=== PATIENT | female | born 1990 | race Caucasian/White ===

== ENCOUNTER 2020-08-22 18:56 | Emergency (ER) | payer SELFPAY ==
[2020-08-22 18:59] VITALS: BP 158/90; PULSE 96; RESP 16; TEMP 36.3; O2SAT 100; BMI 29.7
--- NOTE | 2020-08-22 19:10 | CT_ITS ---
STUDY: CT ABDOMEN AND PELVIS WITH CONTRAST REASON FOR EXAM: Female, 30 years old. abd pain RADIATION DOSAGE (If Supplied By Facility): CTDIvol = ( 11.145 ) mGy, DLP = ( 809.95 ) mGycm TECHNIQUE: Transaxial images were obtained from the dome of the diaphragm to the symphysis pubis without oral contrast. IV 100mL Isovue-370 was administered. Sagittal and coronal images were reconstructed. Individualized dose optimization techniques were used for this CT. COMPARISON: None. FINDINGS: The visualized lung bases are unremarkable. Normal liver. . No intrahepatic biliary duct dilatation or liver mass. Normal gallbladder and extrahepatic biliary system. Normal spleen. Normal pancreas. Normal bilateral adrenal glands. Normal right kidney. Normal left kidney. . No hydronephrosis or renal masses. No large stones. Normal visualized stomach. Normal small intestine. There are multiple colonic diverticula consistent with diverticulosis. No bowel dilatation or obstruction. No free air or free fluid. The appendix is visualized and appears normal. Normal abdominal aorta. Normal inferior vena cava. Normal retroperitoneum. Normal urinary bladder. Normal visualized uterus. Normal abdominal wall. Normal osseous structures. 1. CT/Abdomen/Pelvis W IV Cont ONLY IMPRESSION: 2. Colonic diverticulosis Electronically Signed: Refugio Donnelly MD at 20:49 EDT , Service support ,
[2020-08-22] MEDS: Ondansetron 4 MG/2 ML Vial IV (19:29)
[2020-08-22] MEDS: 0.9% Normal Saline 1,000 ML 1000 ML IV (19:29)
[2020-08-22 19:36] LABS: Bacteria 0 SEEN /hpf (None Seen); Mucous, Urine 0 SEEN /hpf (<or=2+); Red Blood Cells-Urine 0 SEEN /hpf (0-5); Squamous Epithelial Cells - UA 0 SEEN /hpf (5-10); White Blood Cells 0 SEEN /hpf (0-5)
[2020-08-22 19:38] LABS: Color, Urine Straw (Yellow); Glucose, Dipstick Normal (Normal); Ketone-Dipstick Negative (Negative); Leukocyte Esterase-Dipstick Negative /ul (Negative); Nitrite-Dipstick Negative (Negative); Occult Blood-Urine Negative /ul (Negative); Protein-Dipstick Negative (Negative); Specific Gravity, Urine 1.005 (1.002-1.030); Urine Bilirubin Dipstick Negative (Negative); Urine Clarity Clear (Clear); Urine Urobilinogen Normal (Normal)
[2020-08-22 19:39] LABS: Absolute Lymphocyte Count 3.81 X10^3/uL (0.83-4.51); Absolute Neutrophil Count 5.5 X10^3/uL (2.0-7.7); Basophil# 0.08 X10^3/uL; Basophil% 0.7 % (0-1); Eosinophil# 0.71 X10^3/uL; Eosinophils% 6.6 % (0-5); Hematocrit 39.5 % (37-47); Hemoglobin 12.7 g/dL (12.0-15.0); Lymphocyte # 3.81 X10^3/ul (0.83-4.51); Lymphocyte % 35.3 % (19-41); Mean Corp Hgb Conc 32.2 g/dL (32-36); Mean Corpuscular Hgb 27.6 pg (27.0-32.0); Mean Corpuscular Volume 85.9 fL (81-99); Mean Platelet Vol. 9.4 fl (6.2-12.0); Monocyte# 0.65 X10^3/uL; NRBC Flagged by Analyzer 0 % (0-5); Neutrophil # 5.51 X10^3/uL (2.7-7.7); Neutrophil % 51.1 % (47-70); Platelet Count 378 K/mm3 (150-450); RBC Distribution Width CV 12.4 % (11.6-14.6); RBC Distribution Width SD 38.7 fl (35.1-43.9); White Blood Count 10.8 K/mm3 (4.4-11.0)
[2020-08-22 19:42] LABS: Internal QC Validated? YES +Cl - CLEAR BKGD; Pregnancy, Urine Negative Negative
[2020-08-22 19:58] LABS: AST(SGOT) 17 U/L (15-37); Alanine Aminotransfer ALT/SGPT 13 U/L (13-56); Albumin, Serum 3.9 g/dL (3.2-5.0); Alkaline Phosphatase 59 U/L (45-117); Anion Gap 3 (5-15); BUN 12 mg/dL (7-18); BUN/Creat Ratio 10.8 RATIO (10-20); Calcium,Total 8.9 mg/dL (8.5-10.1); Chloride 105 mmol/L (98-107); Creatinine, Serum 1.11 mg/dL (0.55-1.02); EST Glomerular Filtration Rate 61 mL/min (>60); Est Glom Filt Rate - Afr Amer 74 mL/min (>60); Estimated Creatinine Clearance 69.38 ml/min; Globulin 3.9 g/dL (2.2-4.2); Glucose 95 mg/dL (74-106); Lipase 124 U/L (73-393); Potassium 3.5 mmol/L (3.5-5.1); Protein, Total 7.8 g/dL (6.4-8.2); Sodium Level 137 mmol/L (136-145)
--- NOTE | 2020-08-22 20:56 | EDS_ITS ---
HPI History of Present Illness Chief Complaint: Abd Pain Informant: patient Onset/Context/Timing Onset: Days Context: Gradual Onset Timing: Intermittent Current Severity: Moderate Maximum Severity: Moderate Narrative Narrative: The patient is a 30-year-old female is otherwise healthy who presents to the emergency department abdominal pain. Patient states for the past week, she has had a lot of cramping pain across her lower abdomen especially to eating. She states she is had diminished appetite and nausea. She denies any fevers or chills. She states she is otherwise been in her normal state of health. She has no history of prior abdominal surgery. She denies chance of . Prior similar symptoms: No Recent Illness/Hospitalization: No PFSH PFSH Medical History Anxiety Home Medications bupropion HCl [Wellbutrin] 200 mg PO BID 08/22/20 [History Last Taken Unknown] ciprofloxacin HCl 500 mg PO BID #14 tablet 08/22/20 [Rx Last Taken Unknown] escitalopram oxalate [Lexapro] 10 mg PO DAILY 08/22/20 [History Last Taken Unknown] metronidazole 500 mg PO Q8H #21 tab 08/22/20 [Rx Last Taken Unknown] ondansetron 4 mg PO Q8H PRN PRN #10 tab 08/22/20 [Rx Last Taken Unknown] Allergy/AdvReac Type Severity Reaction Status Date / Time No Known Allergies Allergy Verified 08/22/20 18:57 no surgical history Social History Smoking Status: Never smoker ROS ROS ED Constitutional Constitutional ED: Denies chills or fever(s) Eyes Eyes: Denies blurry vision or change in vision ENT ENT ED: Denies ear pain or sore throat Cardiovascular Cardiovascular: Denies chest pain or palpitations Respiratory/Chest Respiratory/Chest: Denies cough, dyspnea or dyspnea on exertion Gastrointestinal Gastrointestinal: Reports abdominal pain and nausea; Denies vomiting Genitourinary Genitourinary ED: Denies dysuria or urinary frequency Musculoskeletal Musculoskeletal: Denies arthralgias or myalgias Integumentary Denies rash Neurologic Neurologic: Denies headache(s) or paresthesias Psychiatric Psychiatric: Denies anxiety or depression Endocrine Endocrinology: Denies polydipsia or polyuria Allergic/Immunologic Allergic/Immunologic ED: Denies urticaria EXAM Physical Exam Const Vital Signs: 08/22/20 18:59 Temperature 97.3 F L Temperature Source Temporal Pulse Rate 96 Respiratory Rate 16 Blood Pressure 158/90 H Blood Pressure Mean 112 Pulse Ox 100 Oxygen Delivery Method Room Air Positive well nourished and well developed General Appearance ED: well developed HEENT Reports normocephalic, head/scalp atraumatic and moist mucous membranes Eyes PERRL and EOMs intact bilaterally Neck no lymphadenopathy and supple General: Negative for tenderness Chest Wall inspection of chest normal Resp normal respiratory effort and clear to auscultation bilaterally Cardio regular rate, regular rhythm and no murmurs GI normal to inspection, nondistended, normoactive bowel sounds GI Narrative: Mildly tender in the suprapubic area under the left lower quadrant Palpation: tender; Negative for guarding or rebound tenderness present Back/Spine no CVA tenderness Cervical Spine: Negative for cervical spine tenderness Thoracic Spine / Upper Back: Negative for thoracic spinal tenderness Extremity normal to inspection General Extremety ED: Negative for tenderness Neuro oriented x3 and CN's II-XII intact bilaterally Neuro Narrative: No focal deficits appreciated. Sensorium / Orientation: alert Psych mental status grossly normal Skin no rashes or lesions noted, no wounds and skin turgor normal MDM MDM MDM Narrative Medical decision making narrative: Patient presents with abdominal pain mostly in the lower quadrant. IV was established. She was given fluids and Zofran with improvement of her symptoms. Screening labs were obtained. These were unremarkable. Urine shows evidence of infection. The patient is non. Patient underwent CT imaging. She does have rather significant diverticulosis. Although there is no definitive evidence of diverticulitis, given her pain and symptoms, I do for the most prudent plan of care would be to treat her with Cipro and Flagyl. Patient examined her first dose here. She has no evidence of perforation or abscess. She not had a fever. I do feel that she is safe for outpatient therapy. She is comfortable with this plan of care. Impression 1. Diverticulitis Lab Data Attestation: I reviewed the patient's lab results. Labs: Laboratory Results - last 24 hr 08/22/20 08/22/20 08/22/20 16:25 19:30 19:30 WBC 10.8 RBC 4.60 Hgb 12.7 Hct 39.5 MCV 85.9 MCH 27.6 MCHC 32.2 RDW Std Deviation 38.7 RDW Coeff of [place] 12.4 Plt Count 378 MPV 9.4 Immature Gran % (Auto) 0.300 Neut % (Auto) 51.1 Lymph % (Auto) 35.3 Evangeline % (Auto) 6.0 Eos % (Auto) 6.6 H Baso % (Auto) 0.7 Absolute Neuts (auto) 5.5 Absolute Lymphs (auto) 3.81 Nucleated RBC % 0 Sodium Potassium Chloride Carbon Dioxide Anion Gap BUN Creatinine Estim Creat Clear Calc Est GFR (MDRD) Af Amer Est GFR (MDRD) Non-Af BUN/Creatinine Ratio Glucose Calcium Total Bilirubin AST ALT Alkaline Phosphatase Total Protein Albumin Globulin Albumin/Globulin Ratio Lipase Urine Color Straw Urine Clarity Clear Urine pH 7.0 Ur Specific [place] 1.005 Urine Protein Negative Urine Glucose (UA) Normal Urine Ketones Negative Urine Occult Blood Negative Urine Nitrite Negative Urine Bilirubin Negative Urine Urobilinogen Normal Ur Leukocyte Esterase Negative Urine RBC 0 SEEN Urine WBC 0 SEEN Ur Squamous Epith Cells 0 SEEN Urine Bacteria 0 SEEN Urine Mucus 0 SEEN Urine Test Negative 08/22/20 19:30 WBC RBC Hgb Hct MCV MCH MCHC RDW Std Deviation RDW Coeff of [place] Plt Count MPV Immature Gran % (Auto) Neut % (Auto) Lymph % (Auto) Evangeline % (Auto) Eos % (Auto) Baso % (Auto) Absolute Neuts (auto) Absolute Lymphs (auto) Nucleated RBC % Sodium 137 Potassium 3.5 Chloride 105 Carbon Dioxide 29.0 Anion Gap 3 L BUN 12 Creatinine 1.11 H Estim Creat Clear Calc 69.38 Est GFR (MDRD) Af Amer 74 Est GFR (MDRD) Non-Af 61 BUN/Creatinine Ratio 10.8 Glucose 95 Calcium 8.9 Total Bilirubin 0.30 AST 17 ALT 13 Alkaline Phosphatase 59 Total Protein 7.8 Albumin 3.9 Globulin 3.9 Albumin/Globulin Ratio 1.0 Lipase 124 Urine Color Urine Clarity Urine pH Ur Specific [place] Urine Protein Urine Glucose (UA) Urine Ketones Urine Occult Blood Urine Nitrite Urine Bilirubin Urine Urobilinogen Ur Leukocyte Esterase Urine RBC Urine WBC Ur Squamous Epith Cells Urine Bacteria Urine Mucus Urine Test Radiography Diagnostic Testing: Radiology Impression Abdomen/Pelvis CT 08/22/20 19:10 IMPRESSION: 2. Colonic diverticulosis Electronically Signed: Refugio Donnelly MD at 20:49 EDT , Service support , Discharge Plan Triage Chief Complaint: Abd Pain ED Provider: Alvin Fatima Dx/Rx/DC Orders Instructions: ED Diverticulitis Prescriptions: New metronidazole [metronidazole] 500 MG tablet 500 mg PO Q8H Qty: 21 RF: 0 ciprofloxacin HCl [ciprofloxacin HCl] 500 MG tablet 500 mg PO BID Qty: 14 RF: 0 ondansetron [ondansetron] 4 MG tablet 4 mg PO Q8H PRN PRN (Reason: Nausea) Qty: 10 RF: 0 No Action bupropion HCl [Wellbutrin] 100 mg Tablet 200 mg PO BID RF: 0 escitalopram oxalate [Lexapro] 5 mg Tablet 10 mg PO DAILY RF: 0 Primary Care Provider: Care Physician,No Primary Referrals: Care Physician,No Primary [Primary Care Provider] -
[2020-08-22] MEDS: Ciprofloxacin 500 MG Tablet PO (21:04)
[2020-08-22] MEDS: metroNIDAZOLE 500 MG Tablet PO (21:04)
== END 2020-08-22 21:08 | disposition home or self-care (01) ==
LOC: ED 19:39
PROVIDERS: Emergency Provider Emergency Medicine
DX: K57.30 Diverticulosis of large intestine without perforation or abscess without bleeding (principal); F41.9 Anxiety disorder, unspecified; Z79.899 Other long term (current) drug therapy
CPT/HCPCS: 74177; 80053; 81001; 81025; 83690; 85025; 96361; 96374; 99283; Q9967; J2405